=== PATIENT | female | born 1955 | race Caucasian/White ===

== ENCOUNTER 2016-09-20 05:35 | Day surgery (SDC) | payer BC ==
[2016-09-17 17:48] LABS: BASOPHILS 0.6 %; BASOPHILS ABSOLUTE 0.04 10/3/uL (0.0-0.16); EOSINOPHILS 3.9 %; EOSINOPHILS ABSOLUTE 0.27 10/3/uL (0.0-0.53); IMMATURE GRANULOCYTES 0.4 %; IMMATURE GRANULOCYTES ABSOLUTE 0.03 10/3/uL (0.0-0.11); LYMPHOCYTES 35.6 %; LYMPHOCYTES ABSOLUTE 2.47 10/3/uL (0.67-4.30); MEAN CORPUS HGB CONC 34.2 g/dL (32.0-36.0); MEAN CORPUSCULAR HEMOGLOB 32.1 pg (26.0-34.0); MEAN PLATELET VOLUME 9.5 fL (9.2-13.0); MONOCYTES 5.3 %; MONOCYTES ABSOLUTE 0.37 10/3/uL (0.21-1.20); NEUTROPHILS 54.2 %; NEUTROPHILS ABSOLUTE 3.75 10/3/uL (2.02-8.40); PLATELET COUNT 192 10/3/uL (150-400); RED CELL COUNT 4.96 10/6/uL (4.0-5.6); WHITE BLOOD CELLS 6.9 10/3/uL (4.5-10.5)
[2016-09-17 17:49] LABS: HEMATOCRIT 46.5 % (36.0-48.0); HEMOGLOBIN 15.9 g/dL (12.0-16.0); MANUAL DIFF NO %; MEAN CORPUSCULAR VOLUME 93.8 fL (80-100)
[2016-09-17 17:53] LABS: ASCORBIC ACID (UR NOT ORDER) NEG (NEG); BILIRUBIN, URINE NEGATIVE (NEG); KETONE, URINE NEGATIVE (NEG); LEUKOCYTE ESTERASE(NOT OR NEG (NEG); WBC (NOT ORDERED) (RFLEX) 1 (0-5)
[2016-09-17 17:57] LABS: A/G RATIO 1.3 (0.7-1.9); ALBUMIN 3.9 G/DL (3.5-5.0); ALKALINE PHOSPHATASE 95 U/L (45-117); BUN (BLOOD UREA NITROGEN) 13 MG/DL (6-23); CALCIUM, SERUM 9.2 MG/DL (8.5-10.4); CHLORIDE, SERUM 109 MMOL/L (96-112); CO2 (CARBON DIOXIDE) 24 MMOL/L (24-34); CREATININE 0.57 MG/DL (0.55-1.02); GFR AFRICAN AMERICAN 117 ML/MIN (>=60); GFR NON AFRICAN AMERICAN 101 ML/MIN (>=60); GLOBULIN 2.9 G/DL (2.5-4.1); POTASSIUM, SERUM 4.3 MMOL/L (3.5-5.3); SGOT(AST) 20 U/L (5-40); SGPT(ALT) 40 U/L (5-65); SODIUM, SERUM 142 MMOL/L (135-148); TOTAL BILIRUBIN 0.4 MG/DL (0-1.2); TOTAL PROTEIN 6.8 G/DL (6.0-8.5)
[2016-09-17 18:00] LABS: GLUCOSE, SERUM 174 MG/DL (60-99)
[2016-09-17 18:02] LABS: PROTIME (NOT ORD) 13.4 SEC (12.0-14.5)
--- NOTE | ~2016-09-20 | OP ---
Record Of Operation [facility] [address] [place]. [address] NAME: DANDRE AZAR : 55 STATUS : [facility]#: [id number] AGE: 60 ADM/REG DATE : 09/20/16 MR#: [id number] REPORT SERV DATE: 09/20/16 DICTATED BY: JOSSIE DIAZ DATE: 09/20/16 REPORT STATUS : Draft TRANSCRIBED BY: MODL DATE: 09/20/16 DATE OF PROCEDURE: 09/20/2016 PREOPERATIVE DIAGNOSIS: Left knee severe arthrofibrosis. POSTOPERATIVE DIAGNOSIS: Left knee severe arthrofibrosis. PROCEDURE: Left knee arthroscopy, debridement of arthrofibrosis, lateral patellar retinacular release. SURGEON: Melany Diaz M.D. [employer] T[employer]ER HELPER: See chart. DESCRIPTION OF PROCEDURE: The patient was taken to the operating room and placed supine on the table in normal fashion without incident. General anesthetic was induced per the anesthesiologist. The patient was carefully positioned, padded, prepped, draped in normal sterile fashion. Left lower extremity exsanguinated, tourniquet inflated to 350. Two standard cross ports were placed, medial one under direct visualization. A spinal needle examination of the knee revealed arthrofibrotic tissue meticulously debrided with shaver and sealed with a contour. I did the same to the opposite portal including cleaning down into the medial and lateral gutters. Lateral release was done to the lateral retinacular fibers. Before and after pictures were taken. Instruments were removed. The wound was dressed sterilely. The patient was awakened and taken to the postanesthesia care unit without incident. COMPLICATIONS: None. SPECIMENS: None. ESTIMATED BLOOD LOSS: Trace. WTB/MODL Melany Diaz M.D. / [id number] CC: Mckenna Holland Nicole Lynae
[~2016-09-20 05:35] MED LIST: ASAB PO; C5 PO; DITRO5 PO; GLUCOPHAGE1000 MG PO; LEXAPRO20 PO; PCET PO; TRAZ100 PO; ZOCOR80 MG PO
[2017-01-10] MEDS ORDERED: THERGRANM PO (10:04)
[2017-01-10] MEDS ORDERED: C5 PO (10:05)
[2017-01-10] MEDS ORDERED: NORCO1 TA2 PO (10:05)
== END 2016-09-20 12:48 | disposition home or self-care (01) ==
LOC: SDC 05:35
PROVIDERS: Specialist
PROC: 0MNP4ZZ Release Left Knee Bursa and Ligament, Percutaneous Endoscopic Approach (ICD-10-PCS; 2016-09-20)
PROC: 0SBD4ZZ Excision of Left Knee Joint, Percutaneous Endoscopic Approach (ICD-10-PCS; principal; 2016-09-20 06:45)
DX: M24.662 Ankylosis, left knee (principal); E78.5 Hyperlipidemia, unspecified; E11.9 Type 2 diabetes mellitus without complications; F41.9 Anxiety disorder, unspecified; F32.9 Major depressive disorder, single episode, unspecified; K21.9 Gastro-esophageal reflux disease without esophagitis; Z98.891 History of uterine scar from previous surgery; Z90.49 Acquired absence of other specified parts of digestive tract
CPT/HCPCS: 36415; 71020-PO; 80053; 81001; 82962; 85025; 85610; 93005; J0690; J2250; J2274; J2405; J2795; J3010